=== PATIENT | female | born 1980 | race Caucasian/White ===

== ENCOUNTER 2020-11-21 15:18 | Emergency (ER) | payer BC ==
[~2020-11-21] VITALS: Ht 162.6 cm; Wt 79.4 kg
--- NOTE | 2020-11-23 12:35 | EKG ---
[facility] [address] [facility] [place] [address] Signed Normal sinus rhythm Incomplete right bundle branch block Borderline ECG No previous ECGs available Confirmed by AVIS FLOOD DO ([id number]) on 11/23/2020 12:35:21 PM Electronically Signed By: AVIS FLOOD DO 11/23/20 1235 PATIENT NAME: NONA REYES Electrocardiogram DATE OF : 76 PHYSICIAN: AVIS FLOOD DO REPORT #: [id number] REPORT IS CONFIDENTIAL AND NOT TO BE RELEASED WITHOUT AUTHORIZATION
== END 2020-11-21 18:52 | disposition home or self-care (01) ==
LOC: ED 15:18
DX: R00.2 Palpitations (principal)
CPT/HCPCS: 80053; 83735; 84443; 84484; 84703; 85025; 93005; 93010; 99285-25

== ENCOUNTER 2023-12-05 06:25 | Day surgery (SDC) | payer OTHER ==
[~2023-12-05] VITALS: Ht 162.6 cm; Wt 86.0 kg
[~2023-12-05 06:25] MED LIST: LACTATED RINGER'S 1,000 ML IV SCH
--- NOTE | 2023-12-05 06:35 | NUR ---
pt arrived to day surgery for surgery on left wrist. pts at bedside. oriented to room and call light.
[2023-12-05] MEDS ORDERED: LIDOCAINE HCL 1% 5 ML SDV INJ ONE (07:00)
[2023-12-05] MEDS ORDERED: IBLOOD GLUCOSE TEST STRIP 1 EA TEST VI PRN (07:00)
[2023-12-05] MEDS ORDERED: LIDOCAINE HCL 2% 5 ML SDV ONE ×2 (07:35→08:18)
[2023-12-05] MEDS ORDERED: propofoL 200 MG/20 ML VIAL ONE ×2 (07:35→08:07)
[2023-12-05] MEDS ORDERED: HYDROCODONE/ACETA 5/325 TAB PO PRN (08:00)
[2023-12-05] MEDS ORDERED: NALOXONE HCL 0.4 MG SYR IV PRN (08:00)
[2023-12-05 10:24] VITALS: BP 111/77
--- NOTE | 2023-12-05 10:34 | NUR ---
12/05/23 1034 Teresa Gilmore 0812- PT PRESENTS TO PACU, SEMI PUENTES POSITION. REACTIVE TO STIMULUS. BANDAIDS AND SPLINT TO LEFT WRIST. CAP REFILL NORMAL. LR INFUSING TO RH IV, BREATHING EVEN AND NON LABORED. NO SIGNS OF DISTRESS. ALL MONITORS IN PLACE. ABD SOFT, NON DISTENDED. WILL CONTINUE TO MONITOR. ICE APPLIED TO LEFT WRIST.
--- NOTE | 2023-12-08 07:11 | OR ---
[facility] [address] [facility] [place], [place] [address] Signed DATE OF OPERATION: 12/05/2023 SURGEON: Diana Sheldon MD PREOPERATIVE DIAGNOSES: Retained pins, left distal radius, status post closed reduction percutaneous pinning, severe anxiety. POSTOPERATIVE DIAGNOSIS: Retained pins, left distal radius, status post closed reduction percutaneous pinning, severe anxiety. PROCEDURE PERFORMED: Removal of hardware, left wrist. SECTION REPAIRER: None. ANESTHESIA: Sedation. BLOOD LOSS: None. BRIEF HISTORY: Danae is a 43-year-old female who underwent closed reduction percutaneous pinning of her wrist. She had severe anxiety and would not tolerate even looking at the pins in clinic. It was decided then to bring her to the operating room and placed under sedation for pin removal. The risks and benefits of this were discussed and she elected to proceed. PROCEDURE IN DETAIL: Once consent was obtained she was taken to the operating room. After adequate anesthesia, she was actually taken to the recovery room and the fracture brace was removed. The four pins were then removed with ease. All wounds were then cleansed and Band-Aids were placed. There she was placed in a cock-up wrist splint and awakened without difficulty. Electronically Signed By: DIANA SHELDON MD 12/08/23 0711 PATIENT NAME: DANAE REYES OPERATIVE REPORT DATE OF : 76 REPORT #: [id number] PHYSICIAN: DIANA SHELDON MD PCP: KORY DUMAS DO REPORT IS CONFIDENTIAL AND NOT TO BE RELEASED WITHOUT AUTHORIZATION [facility] [address] [place], [place] [address] Signed Diana Sheldon MD BA/FRANK /[id number] Copies: ~ Electronically Signed By: DIANA SHELDON MD 12/08/23 0711 PATIENT NAME: DANAE REYES OPERATIVE REPORT DATE OF : 76 REPORT #: [id number] PHYSICIAN: DIANA SHELDON MD PCP: KORY DUMAS DO REPORT IS CONFIDENTIAL AND NOT TO BE RELEASED WITHOUT AUTHORIZATION
== END 2023-12-05 08:55 | disposition home or self-care (01) ==
LOC: DS 06:25
PROVIDERS: ATTEND Specialist
PROC: 0RPP04Z Removal of Internal Fixation Device from Left Wrist Joint, Open Approach (ICD-10-PCS; principal; 2023-12-05)
DX: Z47.2 Encounter for removal of internal fixation device (principal)
CPT/HCPCS: 01820; 84703; J2001; J2704; J7121